=== PATIENT | female | born 1930 | race Caucasian/White ===

== ENCOUNTER 2017-01-19 10:26 | Inpatient (IN) | payer OTHER, MEDICARE ==
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
--- NOTE | ~2017-01-19 | DS ---
Unit #: [id number] #: [id number] Patient: ALBARO FISHER [id number] [address] [place], [place] [address] [id number] I MR#: [id number] NAME: ALBARO FISHER ROOM: 575 Age: 86 Sex: F Admission Date: 01/19/2017 : 1930 Discharge Date: Attending Physician: Nithin Acosta M.D. DISCHARGE SUMMARY REASON FOR ADMISSION Dyspnea. HISTORY OF PRESENT ILLNESS/HOSPITAL COURSE The patient is an 86-year-old female with an underlying history of chronic respiratory failure, COPD, possible heart failure, hypertension, hyperlipidemia, osteoarthritis, likely qmbu-of-phgpjppr dementia, and recurrent urinary tract infections, who presented to the emergency department secondary to above. Please see H and P for complete details. She was noted to be acutely hypoxic in the emergency room, placed on O2 via nasal cannula. Routine laboratory studies were performed, which included blood cultures and urine culture both were negative. B12 level was found to be low and was abruptly replenished and will be continued at time of discharge. Consultation was placed to Dr. Mensah of Pulmonary Services as he had seen the patient in the past. She was maintained on IV Solu-Medrol aerosol as well as IV antibiotics. She underwent CT chest, abdomen, and pelvis and which revealed on the CT chest, patchy areas of nodularity involving both lungs with a 1.4 cm nodule seen in left upper lobe. Short-term CT was recommended and followup CT abdomen and pelvis was performed, which did show changes consistent with chronic constipation as well as questionable ileocecal abnormality; however, given her advanced age as well as associated comorbid conditions, endoscopic evaluation was deemed not appropriate. At this point in time, the patient has been evaluated by Physical therapy, and recommendation has been made for subacute rehab at the time of discharge. Therefore, we will make arrangements for her to be transitioned to rehab for ongoing care. FINAL DISCHARGE DIAGNOSES 1. Acute on chronic respiratory failure. 2. Acute exacerbation of chronic obstructive pulmonary disease. 3. Failure to thrive/malnutrition secondary to poor p.o. intake. 4. Hypertension. 5. Hyperlipidemia. 6. Osteoarthritis. 7. Recurrent urinary tract infections. 8. Cognitive impairment. 9. Likely ajkx-hn-aiyriide dementia. Unit #: [id number] #: [id number] Patient: FISHER,ALBARO 10. Chronic immobility syndrome. 11. Constipation seen on CT exam. FINAL DISCHARGE MEDICATIONS DuoNeb aerosol solution q.6 scheduled with q.2 p.r.n., prednisone 40 mg p.o. daily x5 days, Tylenol 650 mg p.o. q.6 p.r.n., Zofran 4 mg p.o. q.6 p.r.n., Breo Ellipta inhaler one inhalation daily, aspirin 81 mg p.o. daily, omeprazole 20 mg p.o. daily, vitamin B12 1000 mcg IM q.week, Robitussin DM 10 mL p.o. q.6 p.r.n., Levaquin 500 mg p.o. daily x5 days. DISCHARGE CONDITION Stable. DISCHARGE DISPOSITION To rehab. PROGNOSIS Overall long-term prognosis, guarded/poor. Dictated by... Nestor Pacheco/ruma TD: 01/23/2017 01:17 JOB #: [id number] DISCHARGE SUMMARY Page 1 of 1 X Nithin Acosta MD X DISCHARGE SUMMARY
--- NOTE | ~2017-01-19 | CR72 ---
[facility] A Service of [facility] & [facility] RADIOLOGY TEXT RESULTS PATIENT: ALBARO FISHER LOCATION: [facility] [id number] : [birth year] UNIT #: [id number] AGE: [address]: Nithin Acosta MD SEX: F ORDER DR: [id number] [facility] [address] [place], [place] [address] [id number] I MR#: [id number] #: [id number] NAME: ALBARO FISHER : 1930 SEX: F STUDY DATE/TIME: 01/19/2017 10:11 UNIT: [facility] ROOM: [facility] STUDY DESCRIPTION: CR Chest Single View Portable Attending Physician: Nithin Acosta M.D. Ordering Physician: Perez [facility] Alice Jenkins Primary Care Physician: Primary Care Physician No MEDICAL IMAGING REPORT This report is preliminary unless electronic signature is present EXAM Portable chest 01/19/2017 HISTORY 86-year-old female with shortness of air for 1 day. COMPARISON Chest 07/14/2016 FINDINGS Frontal chest demonstrates clear lungs. No pleural effusion or pneumothorax. Heart size and mediastinum are within normal limits. Pulmonary vasculature unremarkable. Left-sided AICD complex. Prominent tortuous thoracic aorta is unchanged. IMPRESSION No acute cardiopulmonary findings. No change from 07/14/2016. Dictated by... Nick Goss M.D. THIS IS AN ELECTRONICALLY VERIFIED REPORT Nick Goss M.D. at 01/21/2017 8:36 AM JOSE A/masoud TD: 01/20/2017 09:31 JOB #: [id number] MEDICAL IMAGING REPORT Page 1 of 1 COPY
--- NOTE | ~2017-01-19 | EKG ---
PATIENT: FISHER, [place] UNIT #: [id number] Ventricular Rate: 108 BPM Atrial Rate: 108 BPM P-R Interval: 122 ms QRS Duration: 150 ms Q-T Interval: 392 ms QTC Calculation(Bezet): 525 ms P [place]: 55 degrees Calculated R [place]: -78 degrees Calculated T [place]: 100 degrees Diagnosis Line: Sinus tachycardia with PVC's Diagnosis Line: Left axis deviation Diagnosis Line: Left bundle branch block Diagnosis Line: Abnormal ECG Diagnosis Line: When compared with ECG of 14-JUL-2016 19:44, Diagnosis Line: Aberrant conduction is now Present Diagnosis Line: Confirmed by VENKATA HAWKINS MD ([id number]) on Diagnosis Line: 01/19/2017 8:12:44 PM INTERPRETING MD: GABRIEL
--- NOTE | ~2017-01-19 | A ---
[facility] Nutrition Therapy DATE: 01/20/17 Patient: ALBARO FISHER Physician: HAFSA Address: [address] [place] [address] Room/Bed: [address] [place] [address], Zip: [place] [address] Admit Date: 01/19/17 Date of : [birth year] Height: 5 2 Weight: 91 41.6 NUTRITIONAL ASSESSMENT: REASON: LOW BMI + CONSULT PT IS 86 Y.O. FEMALE ADMITTED FOR SOA, PNA PMH: DEMENTIA, CHF, RI, CAD, COPD, HTN, HLD, DJD, UTIs, NONISCHEMIC CARDIOMYOPATHY Anthropometrics: 5'2", WT: 88# (PER BEDSIDE) (40 KG), BMI: 16.1, 80%IBW Labs: GLU: 131, ALB: 3.4 Meds: SOLU-MEDROL, ZOFRAN, SENOKOT, PROTONIX, NACL I/O & Bowel function: 150/322 Skin Integrity: DRY SKIN NOTED ALL OVER BODY; NO EDEMA NOTED Estimated Nutrition Needs: INCREASED NUTRIENT NEEDS 2' PT UNDERWEIGHT, WEIGHT LOSS NOTED, DECREASED PO INTAKE AND APPETITE Assessment: CHART REVIEWED AND EVENTS NOTED. PT SEEN FOR LOW BMI + CONSULT. PT SLIGHTLY CONFUSED AT TIME OF VISIT REPORT APPETITE "COMES AND GOES", NOTING NO C/O N/V/D. PT DENIES ANY CHEWING OR SWALLOWING DIFFICULTIES. PT REPORTS WEIGHT LOSS BUT UNABLE TO IDENTIFY AMOUNT AND TIME FRAME OF WEIGHT LOSS. PER deeplocal, PT WEIGHED ~108# BACK IN SEPTEMBER 2016/~18% SEVERE WEIGHT LOSS NOTED IN [address] ENCOURAGED SMALL FREQUENT MEALS + SUPPLEMENT INTAKE, PT AGREED TO ENSURE PUDDING BID, RD WILL ORDER. OF NOTE, METAL WORKER DEEMS PT APPROPRIATE FOR DIET ADVANCEMENT (REGULAR + THIN LIQUID DIET). PT REPORTED NO DIET QUESTIONS AT THIS VISIT. RD TO FOLLOW. Dx: INADEQUATE PROTEIN-ENERGY INTAKE R/T DECREASED APPETITE, ADVANCED AGE, PMH AEB LOW BMI OF 16.1, 80%IBW, SEVERE WEIGHT LOSS NOTED. Intervention: 1. REGULAR DIET 2. RD CONSULT 3. BUTTER[place]OTCH ENSURE PUDDING BID Monitoring, Evaluation and Goals: 1. PO INTAKE; CONSUME >50% OF MEALS W/NO C/O N/V/D (PO>50%) 2. WEIGHTS; PROMOTE GRADUAL WEIGHT GAIN; PREVENT FURTHER WEIGHT LOSS 3. GI; PROMOTE REGULAR GI FUNCTION MONITOR: -PO INTAKE/APPETITE [facility] Nutrition Therapy DATE: 01/20/17 Patient: ALBARO FISHER Physician: HAFSA Address: [address] [place] [address] Room/Bed: [address] [place] [address], Zip: [place] [address] Admit Date: 01/19/17 Date of : [birth year] Height: 5 2 Weight: 91 41.6 -WEIGHTS -SUPPLEMENT INTAKE Recommendations: 1. PLEASE ORDER [place]TER[place] ENSURE PUDDING BID W/MEALS FOR SUPPLEMENTAL NUTRITION 2. APPRECIATE FAMILY AND STAFF TO ENCOURAGE ADEQUATE KCAL AND PROTEIN INTAKE WELL ASSIST W/ORDERING MEALS RD WILL F/U PER PROTOCOL PT IS MODERATELY COMPROMISED Respectfully, GEE PERALES MS, RD, LD Food and Nutritional Services [facility] cc: client file
--- NOTE | ~2017-01-19 | CT57 ---
[facility] A Service of [facility] & [facility] RADIOLOGY TEXT RESULTS PATIENT: ALBARO FISHER LOCATION: [facility] [id number] : [birth year] UNIT #: [id number] AGE: [address]: Nithin Acosta MD SEX: F ORDER DR: [id number] [facility] [address] [place], [place] [address] [id number] I MR#: [id number] Acc #: [id number] NAME: ALBARO FISHER : 1930 SEX: F STUDY DATE/TIME: 01/21/2017 10:08 UNIT: [facility] ROOM: 5 STUDY DESCRIPTION: CT Chest Wo Cont Attending Physician: Nithin Acosta M.D. Ordering Physician: Nithin Acosta M.D. Primary Care Physician: Primary Care Physician No MEDICAL IMAGING REPORT This report is preliminary unless electronic signature is present EXAM CT of the chest without contrast INDICATIONS COPD exacerbation, cough since January 17, 2017. Patient also reports weight loss. TECHNIQUE Axial CT images were obtained from the thoracic inlet through the dome of the diaphragm. No intravenous contrast material was administered. This CT exam was performed with one or more of the following radiation dose reduction techniques: Automatic exposure control, adjustment of mA and/or kV according to patient size, and iterative reconstruction. FINDINGS This patient has chronic consolidation identified within the right lower lobe with associated bronchiectasis. Similar findings were also present in 2009 and I do not think are really significantly changed. This patient has scattered areas of nodularity most pronounced within the right upper lobe. These areas range from about 0.8 to about 1.1 cm. The appearance is really more in keeping with an infectious or inflammatory process, or potentially even some chronic scarring. There is an additional nodule seen within the left upper lobe measuring about 1.4 cm, which I think has some cavitation associated with it. This also could reflect an infectious or inflammatory nodule. None of these areas were present on prior CT from September 2010. Additional area of subpleural patchy consolidation is also noted within the left lower lobe measuring up to about 6 mm in size. Thyroid gland is unremarkable, as are the trachea and esophagus. Patient does have a left-sided pacemaker. Mediastinal lymph nodes really do not appear pathologically enlarged. Thoracic aorta measures within normal size limits. Patient's CT of the abdomen and pelvis will be dictated separately. Overall, I think the bone marrow appears somewhat STS. [facility] A Service of [facility] RADIOLOGY TEXT RESULTS PATIENT: ALBARO FISHER LOCATION: [facility] 575-01 : [birth year] UNIT #: [id number] AGE: [address]: Nithin Acosta MD SEX: F ORDER DR: yaakov, however, I do think similar findings were present on the prior examination. IMPRESSION 1. Patchy areas of nodularity identified within both lungs, most prominently within the right upper lobe although there is a 1.4 cm nodule seen within the left upper lobe. The left upper lobe nodule in particular is associated with some cavitation. All of these could reflect infectious or inflammatory infiltrates; however, given background emphysematous changes, I would suggest short-term CT followup once the patient's immediate clinical symptoms have resolved. 2. Chronic consolidation at the right lung base not significantly changed when compared to September 2010. Please see the separately dictated report for findings within the abdomen and pelvis. Dictated by... Ofelia Patel M.D. THIS IS AN ELECTRONICALLY VERIFIED REPORT Ofelia Patel M.D. at 01/22/2017 4:27 PM AFF/psc TD: 01/21/2017 18:27 JOB #: [id number] MEDICAL IMAGING REPORT Page 1 of 1 COPY
--- NOTE | ~2017-01-19 | CT4 ---
[facility] A Service of [facility] & [facility] RADIOLOGY TEXT RESULTS PATIENT: ALBARO FISHER LOCATION: [facility] 575-01 : [birth year] UNIT #: [id number] AGE: [address]: Nithin Acosta MD SEX: F ORDER DR: [id number] [facility] [address] [place], [place] [address] [id number] MR#: [id number] #: [id number] NAME: ALBARO FISHER : 1930 SEX: F STUDY DATE/TIME: 01/21/2017 10:08 UNIT: [facility] ROOM: 5 STUDY DESCRIPTION: CT Abd and Pelv Wo Cont Attending Physician: Nithin Acosta M.D. Ordering Physician: Nithin Acosta M.D. Primary Care Physician: No Primary Care Physician MEDICAL IMAGING REPORT This report is preliminary unless electronic signature is present EXAM CT of the abdomen and pelvis without contrast, 01/21/17 HISTORY Urinary tract infection, weight loss. There is concern for underlying malignancy. TECHNIQUE This CT exam was performed with one or more of the following radiation dose reduction techniques: automatic exposure control, adjustment of mA and/or kV according to patient size, and iterative reconstruction. Axial CT images were obtained from the dome of the diaphragm through the symphysis pubis. No oral or intravenous contrast material was administered. The patient CT of the chest will be dictated separately. FINDINGS Images through the upper abdomen are limited due to some streak artifact from the patient's pacemaker. Liver appears unremarkable. Calcified granulomata are seen within the spleen. The stomach and proximal small bowel really appear unremarkable on this unenhanced examination. The patient's pancreas is within normal limits as are the adrenal glands. 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 The patient is again noted to have 2 stones within the inferior pole of the left kidney. The more medially located stone measures up to about 1.2 cm, while the more laterally oriented stone measures about 9 mm. These are probably not really significantly changed when compared to the prior examination. They do not really appear to be associated with any obstruction. The urinary bladder is within normal limits. I do not see any evidence of mechanical bowel obstruction, although the patient does have fairly extensive fecal burden seen throughout the colon. Correlation with any history of constipation is recommended. Ileocecal valve does appear somewhat prominent. The [facility] A Service of [facility] RADIOLOGY TEXT RESULTS PATIENT: ALBARO FISHER LOCATION: [facility] [id number] : [birth year] UNIT #: [id number] AGE: [address]: Nithin Acosta MD SEX: F ORDER DR: appearance is nonspecific and may simply be a normal variant, but it is different than on the prior study from June of 2016. Given history of weight loss, potentially the patient could be considered for colonoscopy. The uterus is surgically absent. The urinary bladder appears unremarkable. The appendix is visualized and is within normal limits. There are small bilateral fat-containing inguinal hernias. The patient does appear to be osteoporotic, and there is lumbar scoliosis with convexity to the left. IMPRESSION 1. Some prominent appearance to the ileocecal valve. This potentially may be a variant of normal, and could reflect some debris within the cecum at this level. However, given the patient's history of weight loss, potentially consideration for endoscopy is suggested to exclude any underlying mass lesion. It is different in appearance when compared to the study from 06/14/16. 2. Extensive fecal burden is seen throughout the colon. Correlation with history of constipation is recommended. 3. Nonobstructing stone seen within the inferior pole of the left kidney. These have been present on prior exams dating back to at least 2014. 4. Uterus is surgically absent. 5. Osteoporosis. Dictated by... Ofelia Patel M.D. THIS IS AN ELECTRONICALLY VERIFIED REPORT Ofelia Patel M.D. at 01/22/2017 4:30 PM AFF/ea TD: 01/21/2017 23:01 JOB #: [id number] MEDICAL IMAGING REPORT Page 1 of 1 COPY
[2017-01-19 10:23] LABS: BASOPHIL% 0.3 % (0-2.5); DIFF IND YES; EOSINOPHIL% 0.1 % (0.0-7.0); HEMATOCRIT 32.5 % (35.0-45.0); HEMOGLOBIN 9.8 gm/dL (12.0-16.0); LYMPHOCYTE# 2.3 X10e3 (1.0-3.5); LYMPHOCYTE% 14.6 % (17.0-45.0); MEAN CELL VOLUME 73.7 FL (83-96); MEAN CORPUSCULAR HEMOGLOBIN 22.2 PG (28-34); MEAN CORPUSCULAR HGB CONC 30.1 g/dL (30-36); MEAN PLATELET VOLUME 7.9 FL (6.5-11.5); MONOCYTE% 6.3 % (3.0-12.0); NEUTROPHIL# 12.2 X10e3 (1.5-7.1); NEUTROPHIL% 78.7 % (40-75); PLATELET COUNT 286 X10e3 (140-420); RED BLOOD COUNT 4.41 X10e (3.90-5.30); RED CELL DISTRIBUTION WIDTH 20.7 % (11.0-15.5); WHITE BLOOD COUNT 15.5 X10e3 (4.0-10.5)
[~2017-01-19 10:26] MED LIST: ADVAIR 250-501 EAC1 INH; ADVAIR 250-501 EACH IH; ADVAIR 2501 DISK W/D PO; ALBUTEROL 0.5ML INH; ASPIRIN EC81 M1 PO; ASPIRIN325 M1; ASPIRIN81 M2 PO; ASPIRIN81 MG PO; ATARAX PO; BACTRIM DS TABL1 TA1 PO; BAYER ASPIRIN325 M1 PO; CEFACLOR250 MG PO; CEFTIN; CEFTRIAXONE1 GM IV; CLOPIDOGREL75 MG PO; COLACE PO; COMBIVENT INH14.7 GM; COMBIVENT U/D3 M4 INH; COREG12.5 MG PO; COREG3.125 MG PO; DELTASONE20 MG PO; DID NOT BRING LIST; DOCUSATE SODIU100 MG PO; DUONEB 2.5-0.5 M3 ML NEB; EFFEXOR37.5 MG PO; HYDROCODON-ACE1 EAC7 PO; IPRAT-ALBUT 0.5-3 ML INH; IPRATR-ALBUTEROL3 ML INH; LASIX PO; LASIX20 MG PO; LIPITOR20 MG PO; LISINOPRIL10 MG PO; LISINOPRIL2.5 MG PO; LORTAB 10-5001 EACH PO; LOVENOX40 MG/0.4 INJ; LOW DOSE ASPIRI81 M2 PO; MACROBID100 M1 PO; MACROBID100 MG DOB; MACRODANTIN PO; MUCINEX D ER T1 EAC1 PO; MUCINEX D ER T1 EACH PO; MUCINEX1200 MG/BO PO; MULTI-DAY1 TAB PO; NAPROSYN500 MG PO; NICOTINE TRANSD21 MG EXT; PEPCID40 MG PO; PLAVIX PO; PREDNISONE; PREDNISONE1 MG PO; SIMVASTATIN40 MG PO; SPIRIVA18 MCG INH; SYMBICORT INH; ZANTAC150 M1 PO; ZANTAC150 MG PO; ZITHROMAX PO; ZOCOR PO; ZOFRAN ODT4 MG PO
[2017-01-19 10:33] LABS: INR 1.1; PROTHROMBIN TIME (PATIENT) 11.1 SECONDS (9.6-11.5)
[2017-01-19 10:37] LABS: PLATELET ESTIMATE NORMAL (NORMAL); RBC NORMAL YES
[2017-01-19 11:09] LABS: ALBUMIN SERUM 3.5 g/dL (3.5-5.0); ALKALINE PHOSPHATASE 62 U/L (32-92); ALT (SGPT) 9 U/L (10-40); AST (SGOT) 17 U/L (10-42); BILIRUBIN, DIRECT 0.2 mg/dL (0.0-0.2); BILIRUBIN,INDIRECT 0.8 mg/dL (0.0-0.9); BLOOD UREA NITROGEN 14 mg/dL (9-23); BUN/CREATININE RATIO 23.33; CALCIUM SERUM 8.8 mg/dL (8.4-10.2); CARBON DIOXIDE 23 mmol/L (22-31); CHLORIDE 106 mmol/L (100-111); CREATININE SERUM 0.6 mg/dL (0.6-1.4); GLOM FILT RATE Estimated ABOVE60 mL/min (>60); GLUCOSE FASTING 147 mg/dL (70-110); POTASSIUM 3.5 mmol/L (3.5-5.1); PROTEIN TOTAL SERUM 6.6 g/dL (6.0-8.3); SODIUM 136 mmol/L (135-145)
[2017-01-19 11:38] LABS: CK TOTAL 51 IU/L (26-140)
[2017-01-19] MEDS ORDERED: ASPIRIN EC81 M1 PO (12:00)
[2017-01-19] MEDS ORDERED: ACETAMINOPHEN650 M3 PO (12:00)
[2017-01-19] MEDS ORDERED: BREO ELLIPTA I1 EACH INH (12:01)
[2017-01-19] MEDS ORDERED: OMEPRAZOLE20 M1 PO (12:03)
[2017-01-19] MEDS ORDERED: ALB/IPRATROPIUM/1 E1 INH (12:03)
[2017-01-19] MEDS ORDERED: HYDROCODONE-APA1 T54 PO (12:04)
[2017-01-19] MEDS ORDERED: SENNA8.6 M1 PO (12:04)
[2017-01-19] MEDS ORDERED: ROBITUSSIN PO (12:13)
[2017-01-19] MEDS ORDERED: ZOFRAN PO (12:13)
[2017-01-19] MEDS ORDERED: KEFLEX250 M1 PO (12:14)
[2017-01-19 14:16] LABS: IRON SERUM 7 ug/dL (28-170); TOTAL IRON BINDING CAPACITY 332 ug/dL (269-535); TRANSFERRIN 237 mg/dL (192-382); TRANSFERRIN SATURATION 2 % (20-50)
[2017-01-19 14:25] LABS: CK TOTAL 43 IU/L (26-140)
[2017-01-19 14:37] LABS: FOLATE (FOLIC ACID) 4.3 ng/mL (>5.8)
[2017-01-19 19:28] LABS: URINE APPEARANCE CLEAR; URINE BILIRUBIN NEG (NEG); URINE BLOOD 2+ (NEG); URINE COLOR YELLOW; URINE GLUCOSE 250 MG/DL (NEG); URINE KETONE NEG (NEG); URINE LEUKOCYTE ESTERASE 1+ (NEG); URINE NITRATE NEG (NEG); URINE PH 5.5 (5-8); URINE PROTEIN 1+ (NEG); URINE SPECIFIC GRAVITY 1.023 (1.003-1.035); URINE UROBILINOGEN 0.2 MG/DL (NEG)
[2017-01-19 19:32] LABS: CULTURE INDICATED? YES; URINE BACTERIA AUWI 2+ (NEGATIVE); URINE SQUAMOUS EPITHELIAL CELL NONE SEEN /[HPF]; UWBCS1 AUWI 50-100 (0-5)
[2017-01-19 22:16] LABS: CK TOTAL 44 IU/L (26-140)
[2017-01-20 08:17] LABS: HEMATOCRIT 32.4 % (35.0-45.0); HEMOGLOBIN 9.7 gm/dL (12.0-16.0); MEAN CELL VOLUME 74.5 FL (83-96); MEAN CORPUSCULAR HEMOGLOBIN 22.3 PG (28-34); MEAN PLATELET VOLUME 8.4 FL (6.5-11.5); RED BLOOD COUNT 4.35 X10e (3.90-5.30); RED CELL DISTRIBUTION WIDTH 20.7 % (11.0-15.5); WHITE BLOOD COUNT 9.6 X10e3 (4.0-10.5)
[2017-01-20 09:05] LABS: ALBUMIN SERUM 3.4 g/dL (3.5-5.0); ALKALINE PHOSPHATASE 57 U/L (32-92); ALT (SGPT) 10 U/L (10-40); AST (SGOT) 16 U/L (10-42); BILIRUBIN,TOTAL 0.6 mg/dL (0.2-2.0); BLOOD UREA NITROGEN 19 mg/dL (9-23); BUN/CREATININE RATIO 27.14; CALCIUM SERUM 9.6 mg/dL (8.4-10.2); CARBON DIOXIDE 21 mmol/L (22-31); CHLORIDE 108 mmol/L (100-111); CREATININE SERUM 0.7 mg/dL (0.6-1.4); GLOM FILT RATE Estimated ABOVE60 mL/min (>60); GLUCOSE FASTING 131 mg/dL (70-110); PROTEIN TOTAL SERUM 6.6 g/dL (6.0-8.3); SODIUM 141 mmol/L (135-145)
[2017-01-22 05:31] LABS: HEMATOCRIT 28.9 % (35.0-45.0); HEMOGLOBIN 8.8 gm/dL (12.0-16.0); MEAN CELL VOLUME 73.9 FL (83-96); MEAN CORPUSCULAR HEMOGLOBIN 22.7 PG (28-34); MEAN CORPUSCULAR HGB CONC 30.6 g/dL (30-36); MEAN PLATELET VOLUME 8.3 FL (6.5-11.5); RED BLOOD COUNT 3.9 X10e (3.90-5.30)
[2017-01-22 06:09] LABS: BLOOD UREA NITROGEN 27 mg/dL (9-23); CARBON DIOXIDE 23 mmol/L (22-31); CHLORIDE 110 mmol/L (100-111); CREATININE SERUM 0.6 mg/dL (0.6-1.4); GLOM FILT RATE Estimated ABOVE60 mL/min (>60); GLUCOSE FASTING 126 mg/dL (70-110); POTASSIUM 4.1 mmol/L (3.5-5.1); SODIUM 139 mmol/L (135-145)
== END 2017-01-23 18:33 | DRG 871 ==
LOC: CED 10:26 → CEDOF 12:50 → C5C 14:41
PROVIDERS: Emergency Medicine; Family Medicine
PROC: 3E0234Z Introduction of Serum, Toxoid and Vaccine into Muscle, Percutaneous Approach (ICD-10-PCS; principal; 2017-01-21)
DX: A41.9 Sepsis, unspecified organism (principal); J18.9 Pneumonia, unspecified organism; J96.20 Acute and chronic respiratory failure, unspecified whether with hypoxia or hypercapnia; I11.0 Hypertensive heart disease with heart failure; J44.1 Chronic obstructive pulmonary disease with (acute) exacerbation; I50.22 Chronic systolic (congestive) heart failure; E46 Unspecified protein-calorie malnutrition; N39.0 Urinary tract infection, site not specified; Z68.1 Body mass index [BMI] 19.9 or less, adult; Z99.81 Dependence on supplemental oxygen; D50.9 Iron deficiency anemia, unspecified; E78.5 Hyperlipidemia, unspecified; M19.90 Unspecified osteoarthritis, unspecified site; Z87.891 Personal history of nicotine dependence; Z88.0 Allergy status to penicillin; Z90.710 Acquired absence of both cervix and uterus; Z95.810 Presence of automatic (implantable) cardiac defibrillator; Z79.82 Long term (current) use of aspirin; M62.3 Immobility syndrome (paraplegic); Z23 Encounter for immunization; R62.7 Adult failure to thrive; F02.80 Dementia in other diseases classified elsewhere, unspecified severity, without behavioral disturbance, psychotic disturbance, mood disturbance, and anxiety; K59.00 Constipation, unspecified
CPT/HCPCS: 36415; 71010; 71250; 74176; 80048; 80053; 80076; 81003; 82308; 82378; 82550; 82607; 82728; 82746; 83540; 83550; 83605; 83880; 84443; 84484; 85014; 85018; 85025; 85027; 85610; 86301; 87040; 87070; 87077; 87086; 87205; 90688; 92526; 92610; 93005; 94640; 94760; 97110; 97116; 97163; 97167; 97530; 99291; G8978-GP; G8979-GP; G8987-GO; G8988-GO; G8989-GO; G8996-GN; G8997-GN; G8998-GN; J0456; J2920; J2930; J3420

== ENCOUNTER 2017-02-25 17:14 | Emergency (ER) | payer MEDICARE, OTHER ==
--- NOTE | ~2017-02-25 | EKG ---
PATIENT: FISHER, LEO UNIT #: [id number] Ventricular Rate: 87 BPM Atrial Rate: 87 BPM P-R Interval: 118 ms QRS Duration: 148 ms Q-T Interval: 398 ms QTC Calculation(Bezet): 478 ms P Twilight: 75 degrees Calculated R Twilight: -75 degrees Calculated T Twilight: 108 degrees Diagnosis Line: Normal sinus rhythm Diagnosis Line: Left axis deviation Diagnosis Line: Left bundle branch block Diagnosis Line: Abnormal ECG Diagnosis Line: When compared with ECG of 19-JAN-2017 09:51, Diagnosis Line: No significant change was found Diagnosis Line: Confirmed by VENKATA HAWKINS MD ([id number]) on Diagnosis Line: 02/25/2017 10:31:03 PM INTERPRETING : GABRIEL
--- NOTE | ~2017-02-25 | CR72 ---
[facility] A Service of [facility] & [facility] RADIOLOGY TEXT RESULTS PATIENT: ALBARO FISHER LOCATION: [facility] : [birth year] UNIT #: [id number] AGE: [address]: Perez Spain MD SEX: F ORDER DR: [id number] [facility] [address] [place], [place] [address] [id number] MR#: [id number] #: [id number] NAME: ALBARO FISHER : 1930 SEX: F STUDY DATE/TIME: 02/25/2017 16:30 UNIT: [facility] ROOM: STUDY DESCRIPTION: CR Chest Single View Portable Attending Physician: Perez Spain M.D. Ordering Physician: Perez Spain M.D. Primary Care Physician: No Primary Care Physician MEDICAL IMAGING REPORT This report is preliminary unless electronic signature is present EXAM Portable chest. DATE OF EXAM 02/25/2017 COMPARISON Previous chest radiograph, 01/19/2017. CLINICAL HISTORY Short of air for 2 years, worsened for the past month. FINDINGS Hyperexpansion consistent with COPD, heart size upper limits normal but no consolidation or effusion or pneumothorax, no acute abnormality nor interval change since 01/19/2017. Dictated by... Saeid Borden M.D. THIS IS AN ELECTRONICALLY VERIFIED REPORT Saeid Borden M.D. at 02/26/2017 9:38 AM SOLOMON/wallace TD: 02/25/2017 21:17 JOB #: [id number] MEDICAL IMAGING REPORT Page 1 of 1 COPY
[2017-02-25 16:37] LABS: BASOPHIL# 0.1 X10e3 (0-0.3); BASOPHIL% 0.7 % (0-2.5); EOSINOPHIL# 0.3 X10e3 (0-0.7); EOSINOPHIL% 3.3 % (0.0-7.0); HEMATOCRIT 35.3 % (35.0-45.0); HEMOGLOBIN 10.6 gm/dL (12.0-16.0); LYMPHOCYTE# 2.2 X10e3 (1.0-3.5); LYMPHOCYTE% 23.1 % (17.0-45.0); MEAN CELL VOLUME 75.7 FL (83-96); MEAN CORPUSCULAR HEMOGLOBIN 22.6 PG (28-34); MEAN CORPUSCULAR HGB CONC 29.9 g/dL (30-36); MEAN PLATELET VOLUME 8.3 FL (6.5-11.5); MONOCYTE# 0.9 X10e3 (0-1.0); MONOCYTE% 9.2 % (3.0-12.0); NEUTROPHIL# 6.1 X10e3 (1.5-7.1); NEUTROPHIL% 63.7 % (40-75); PLATELET COUNT 335 X10e3 (140-420); RED BLOOD COUNT 4.66 X10e (3.90-5.30); RED CELL DISTRIBUTION WIDTH 18.9 % (11.0-15.5); WHITE BLOOD COUNT 9.6 X10e3 (4.0-10.5)
[2017-02-25 16:38] LABS: DIFF IND NO
[2017-02-25 16:48] LABS: PARTIAL THROMBOPLASTIN TIME 24.5 SECONDS (23.5-31.3); PROTHROMBIN TIME (PATIENT) 10.2 SECONDS (9.6-11.5)
[2017-02-25 16:58] LABS: ALBUMIN SERUM 4.1 g/dL (3.5-5.0); ALKALINE PHOSPHATASE 78 U/L (32-92); ALT (SGPT) 11 U/L (10-40); AST (SGOT) 19 U/L (10-42); BILIRUBIN,TOTAL 0.5 mg/dL (0.2-2.0); BLOOD UREA NITROGEN 16 mg/dL (9-23); BUN/CREATININE RATIO 22.85; CALCIUM SERUM 9.2 mg/dL (8.4-10.2); CARBON DIOXIDE 27 mmol/L (22-31); CHLORIDE 104 mmol/L (100-111); CREATININE SERUM 0.7 mg/dL (0.6-1.4); GLOM FILT RATE Estimated 77.9 mL/min (>60); GLUCOSE FASTING 101 mg/dL (70-110); POTASSIUM 3.9 mmol/L (3.5-5.1); SODIUM 140 mmol/L (135-145)
[2017-02-25 17:12] LABS: BILIRUBIN, DIRECT <0.1 mg/dL (0.0-0.2); BILIRUBIN,INDIRECT 0.4 mg/dL (0.0-0.9)
[~2017-02-25 17:14] MED LIST changes: +ACETAMINOPHEN650 M3 PO; +ALB/IPRATROPIUM/1 E1 INH; +BREO ELLIPTA I1 EACH INH; +HYDROCODONE-APA1 T54 PO; +KEFLEX250 M1 PO; +OMEPRAZOLE20 M1 PO; +ROBITUSSIN PO; +SENNA8.6 M1 PO; +ZOFRAN PO
[2017-02-25 17:43] LABS: URINE SOURCE CLEAN CATCH
[2017-02-25 17:50] LABS: URINE APPEARANCE CLEAR; URINE BILIRUBIN NEG (NEG); URINE BLOOD 3+ (NEG); URINE COLOR YELLOW; URINE GLUCOSE NEG (NEG); URINE KETONE NEG (NEG); URINE LEUKOCYTE ESTERASE 2+ (NEG); URINE NITRATE NEG (NEG); URINE PH 6.5 (5-8); URINE PROTEIN 1+ (NEG); URINE SPECIFIC GRAVITY 1.017 (1.003-1.035); URINE UROBILINOGEN 0.2 MG/DL (NEG)
[2017-02-25 17:55] LABS: CULTURE INDICATED? YES; URBCS1 AUWI 100-200 /[HPF] (0-2); URINE BACTERIA AUWI 4+ (NEGATIVE); URINE SQUAMOUS EPITHELIAL CELL NONE SEEN /[HPF]; UWBCS1 AUWI 25-50 (0-5)
[2017-02-25 18:25] LABS: POC - CKMB 1.3 ng/mL (0.0-7.9); POC - TROPONIN <0.05 ng/mL (<=0.05)
== END 2017-02-25 21:12 | disposition home or self-care (01) ==
LOC: CED 17:14
PROVIDERS: Emergency Medicine
DX: R06.02 Shortness of breath (principal); N39.0 Urinary tract infection, site not specified; J44.9 Chronic obstructive pulmonary disease, unspecified; Z88.0 Allergy status to penicillin; Z79.899 Other long term (current) drug therapy
CPT/HCPCS: 36415; 51701; 71010; 80048; 80076; 81003; 82553; 82947; 84484; 85025; 85610; 85730; 87086; 87186; 93005; 99284

== ENCOUNTER 2017-05-18 14:00 | Inpatient (IN) | payer OTHER, MEDICARE ==
[~2017-05-18] VITALS: Ht 157.5 cm; Wt 49.4 kg
--- NOTE | ~2017-05-18 | CR72 ---
[facility] A Service of [facility] & [facility] RADIOLOGY TEXT RESULTS PATIENT: ALBARO FISHER LOCATION: [facility] [id number] : [birth year] UNIT #: [id number] AGE: [address]: CYNTHIA VEGA MD SEX: F ORDER DR: [id number] [facility] [address] [facility] [place], [place] [address] [id number] I MR#: [id number] Acc #: [id number] NAME: ALBARO FISHER : 1930 SEX: F STUDY DATE/TIME: 05/18/2017 14:22 UNIT: [facility] ROOM: [facility] STUDY DESCRIPTION: CR Chest Single View Portable Attending Physician: Cynthia Vega M.D. Ordering Physician: Jas Wells M.D. Primary Care Physician: Primary Care Physician No MEDICAL IMAGING REPORT This report is preliminary unless electronic signature is present EXAM Single view chest INDICATIONS Shortness of air for 1 day. FINDINGS Single portable AP view of the chest compared to 04/07/2017. Heart size is unchanged. There is a bulbous contour to the aortic arch. This is similar to the prior studies. There is background emphysema. No new pulmonary opacities. IMPRESSION 1. No acute intracranial findings. 2. Emphysema. 3. Enlarged and tortuous aortic arch is unchanged from the prior study. Dictated by... Bryan Del Valle M.D. THIS IS AN ELECTRONICALLY VERIFIED REPORT Bryan Del Valle M.D. at 05/19/2017 8:07 AM C/semaj TD: 05/18/2017 23:40 JOB #: [id number] MEDICAL IMAGING REPORT Page 1 of 1 COPY
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
--- NOTE | ~2017-05-18 | EKG ---
PATIENT: FISHER, WINDSOR UNIT #: [id number] Ventricular Rate: 109 BPM Atrial Rate: 109 BPM P-R Interval: 118 ms QRS Duration: 136 ms Q-T Interval: 378 ms QTC Calculation(Bezet): 509 ms P [place]: 51 degrees Calculated R [place]: -65 degrees Calculated T [place]: 110 degrees Diagnosis Line: Sinus tachycardia Diagnosis Line: Possible Left atrial enlargement Diagnosis Line: Left axis deviation Left bundle branch block Diagnosis Line: Left ventricular hypertrophy with QRS widening and Diagnosis Line: repolarization abnormality Diagnosis Line: Abnormal ECG Diagnosis Line: When compared with ECG of 07-APR-2017 11:25, Diagnosis Line: T wave inversion less evident in Lateral leads Diagnosis Line: Confirmed by MARBIN GALVAN MD ([id number]) on Diagnosis Line: 05/18/2017 5:44:59 PM INTERPRETING MD: COLE COLIN
--- NOTE | ~2017-05-18 | DS ---
Unit #: [id number] #: [id number] Patient: ALBARO FISHER [id number] [address] [address] [id number] I MR#: [id number] NAME: ALBARO FISHER ROOM: 569 Age: 87 Sex: F Admission Date: 05/18/2017 : 1930 Discharge Date: 05/22/2017 Attending Physician: Jarocho Gordon M.D. Primary Care Physician: No Primary Care Physician DISCHARGE SUMMARY PERTINENT HISTORY AND HOSPITAL COURSE The patient is an 87-year-old woman with a past medical history significant for chronic respiratory failure, oxygen dependent with 2 liters nasal cannula at home, COPD. She presented to the hospital in respiratory distress. The patient was placed on CPAP. Her oxygen saturations improved. She was treated with IV glucocorticoids and nebulized bronchodilators. During her admission she was also noted to have urinary tract infection. Urine cultures grew Enterococcus faecium resistant to ampicillin, sensitive to nitrofurantoin. At discharge the patient was not longer short of breath, breathing comfortably, afebrile, vitals stable. DISCHARGE MEDICATIONS 1. Combivent q.4 hours p.r.n. 2. Prednisone 20 mg p.o. once daily for 5 days. 3. Breo Ellipta inhaler 1 inhalation daily. 4. Aspirin 81 mg p.o. once daily. 5. Omeprazole 20 mg p.o. once daily. 6. Nitrofurantoin 100 mg p.o. b.i.d. for 10 days. DISCHARGE INSTRUCTIONS Follow up with primary care physician. Dictated by... Nestor Ritchie/luz TD: 05/24/2017 13:16 JOB #: [id number] DISCHARGE SUMMARY Page 1 of 1 X X DISCHARGE SUMMARY
[2017-05-18 15:06] LABS: BASOPHIL# 0.2 X10e3 (0-0.3); EOSINOPHIL# 0.1 X10e3 (0-0.7); EOSINOPHIL% 0.7 % (0.0-7.0); HEMATOCRIT 38.1 % (35.0-45.0); HEMOGLOBIN 11.3 gm/dL (12.0-16.0); LYMPHOCYTE# 3.4 X10e3 (1.0-3.5); LYMPHOCYTE% 16.9 % (17.0-45.0); MEAN CELL VOLUME 75.2 FL (83-96); MEAN CORPUSCULAR HEMOGLOBIN 22.2 PG (28-34); MEAN CORPUSCULAR HGB CONC 29.6 g/dL (30-36); MEAN PLATELET VOLUME 8.3 FL (6.5-11.5); MONOCYTE# 1.3 X10e3 (0-1.0); MONOCYTE% 6.7 % (3.0-12.0); NEUTROPHIL% 74.7 % (40-75); PLATELET COUNT 306 X10e3 (140-420); RED BLOOD COUNT 5.06 X10e (3.90-5.30); RED CELL DISTRIBUTION WIDTH 18.5 % (11.0-15.5); WHITE BLOOD COUNT 20.1 X10e3 (4.0-10.5)
[2017-05-18 15:07] LABS: DIFF IND YES
[2017-05-18 15:10] LABS: POC - CKMB 3.7 ng/mL (0.0-7.9); POC - TROPONIN <0.05 ng/mL (<=0.05)
[2017-05-18 15:16] LABS: BILIRUBIN, DIRECT 0.2 mg/dL (0.0-0.2); BILIRUBIN,INDIRECT 0.4 mg/dL (0.0-0.9); BILIRUBIN,TOTAL 0.6 mg/dL (0.2-2.0); CREATININE SERUM 0.7 mg/dL (0.6-1.4); GLOM FILT RATE Estimated 77.4 mL/min (>60); POTASSIUM 4.2 mmol/L (3.5-5.1); PROTEIN TOTAL SERUM 8.1 g/dL (6.0-8.3)
[2017-05-18 15:39] LABS: ARTERIAL BLD GAS O2 SATURATION 85.9 % (90.0-100.0); ARTERIAL BLOOD GAS CARBOXY HB 1.2 %sat (0.0-9.0); ARTERIAL BLOOD GAS HCO3 25.4 mmol/L; ARTERIAL BLOOD GAS MET HB 0.2 %sat (0.0-2.0); ARTERIAL BLOOD GAS PCO2 37.8 mmHg (35.0-45.0); ARTERIAL BLOOD GAS pH 7.435 (7.350-7.450)
[2017-05-18 15:40] LABS: ARTERIAL BLOOD GAS ART SITE RIGHT BRACHIAL; ARTERIAL BLOOD GAS DELIVERY NASAL CANNULA; ARTERIAL DRAW? YES
[2017-05-18 15:53] LABS: PLATELET ESTIMATE NORMAL (NORMAL)
[2017-05-18 15:54] LABS: ANISOCYTOSIS MOD; MICROCYTOSIS SL; POIKILOCYTOSIS MOD
[2017-05-18 17:07] LABS: URINE APPEARANCE CLEAR; URINE BILIRUBIN NEG (NEG); URINE BLOOD 3+ (NEG); URINE COLOR YELLOW; URINE GLUCOSE NEG (NEG); URINE KETONE NEG (NEG); URINE LEUKOCYTE ESTERASE 2+ (NEG); URINE NITRATE NEG (NEG); URINE PROTEIN 2+ (NEG); URINE SPECIFIC GRAVITY 1.017 (1.003-1.035); URINE UROBILINOGEN 0.2 MG/DL (NEG)
[2017-05-18 17:10] LABS: CULTURE INDICATED? YES; URBCS1 AUWI 50-100 /[HPF] (0-2); URINE BACTERIA AUWI 2+ (NEGATIVE); URINE SQUAMOUS EPITHELIAL CELL NONE SEEN /[HPF]; UWBCS1 AUWI 50-100 (0-5)
[2017-05-21 06:47] LABS: BUN/CREATININE RATIO 42.85; CREATININE SERUM 0.7 mg/dL (0.6-1.4); GLOM FILT RATE Estimated 77.4 mL/min (>60); POTASSIUM 4.9 mmol/L (3.5-5.1)
[2017-05-21 07:32] LABS: BASOPHIL% 0.3 % (0-2.5); HEMATOCRIT 32.4 % (35.0-45.0); HEMOGLOBIN 9.7 gm/dL (12.0-16.0); LYMPHOCYTE# 0.8 X10e3 (1.0-3.5); LYMPHOCYTE% 6.2 % (17.0-45.0); MEAN CELL VOLUME 74.5 FL (83-96); MEAN CORPUSCULAR HEMOGLOBIN 22.2 PG (28-34); MEAN CORPUSCULAR HGB CONC 29.8 g/dL (30-36); MEAN PLATELET VOLUME 9.1 FL (6.5-11.5); MONOCYTE# 0.3 X10e3 (0-1.0); MONOCYTE% 2.6 % (3.0-12.0); NEUTROPHIL# 11.4 X10e3 (1.5-7.1); NEUTROPHIL% 90.9 % (40-75); RED BLOOD COUNT 4.34 X10e (3.90-5.30); RED CELL DISTRIBUTION WIDTH 18.7 % (11.0-15.5); WHITE BLOOD COUNT 12.5 X10e3 (4.0-10.5)
[2017-05-21 08:18] LABS: DIFF IND NO; PLATELET COUNT 261 X10e3 (140-420)
[2017-05-22] MEDS ORDERED: MACROBID100 M1 PO (11:18)
[2017-05-22] MEDS ORDERED: PREDNISONE PO (11:19)
== END 2017-05-22 15:43 | disposition home or self-care (01) | DRG 871 ==
LOC: CED 14:00 → C5C 17:18 → CEDOF 17:18 → C5C 17:25
PROVIDERS: Emergency Medicine; Internal Medicine
DX: A41.9 Sepsis, unspecified organism (principal); J96.21 Acute and chronic respiratory failure with hypoxia; I11.0 Hypertensive heart disease with heart failure; I50.9 Heart failure, unspecified; N39.0 Urinary tract infection, site not specified; J44.1 Chronic obstructive pulmonary disease with (acute) exacerbation; E78.5 Hyperlipidemia, unspecified; I25.10 Atherosclerotic heart disease of native coronary artery without angina pectoris; Z99.81 Dependence on supplemental oxygen; M19.90 Unspecified osteoarthritis, unspecified site; Z95.810 Presence of automatic (implantable) cardiac defibrillator; Z90.710 Acquired absence of both cervix and uterus; Z88.0 Allergy status to penicillin; B95.2 Enterococcus as the cause of diseases classified elsewhere; Z79.82 Long term (current) use of aspirin; Z66 Do not resuscitate
CPT/HCPCS: 36415; 36600; 71010; 80048; 80076; 81003; 82553; 82803; 82947; 83605; 83880; 84484; 85025; 87040; 87086; 87186; 93005; 94640; 94664; 94760; 99291; J0696; J2920